=== PATIENT | female | born 1970 | race Two or more races ===

== ENCOUNTER → 2021-06-13 | Outpatient (CLI) | payer OTHER ==
[~2021-06-13] MED LIST: CONTRAST GIVEN. MC PRN; IOHEXOL 240 MG/ML 50ML VIAL. PO ONE
--- NOTE | 2021-06-13 09:38 | RAD ---
EXAMINATION: CT ABDOMEN+PELVIS W CLINICAL HISTORY: Ventral hernia TECHNIQUE: CT of the abdomen and pelvis was performed using standard technique, scanning from just ab ove the dome of the diaphragm to the symphysis pubis with oral contrast only. CT Dose Reduction Employed: One or more of the following individualized dose reduction techniques wer e utilized for this examination: 1. Automated exposure control 2. Adjustment of the mA and/or kV ac cording to patient size 3. Use of iterative reconstruction technique. COMPARISON: None FINDINGS: Visualized heart and lungs unremarkable. Liver, gallbladder, pancreas, spleen, adrenal glands, and kidneys unremarkable. Mildly filled urinary bladder. Hysterectomy. No dilated bowel. Appendix within normal limits. No abdominal aortic or iliac artery aneurysm. Moderate fat-containing midline infraumbilical hernia with hernia defect measuring approximately 2.6 x 1.8 cm. Small fat-containing umbilical hernia. Partially visualized degenerative changes of the tho racic spine. IMPRESSION: Moderate fat-containing midline infraumbilical hernia. Small fat-containing umbilical hernia. Electronically signed by: José Arambula DO (06/13/2021 9:36 AM) [id number]
== END ==
LOC: CT 09:15
PROVIDERS: ATTEND Family Medicine
DX: K42.9 Umbilical hernia without obstruction or gangrene (principal); M47.814 Spondylosis without myelopathy or radiculopathy, thoracic region; Z90.710 Acquired absence of both cervix and uterus
CPT/HCPCS: 74176; Q9966